=== PATIENT | female | born 1935 | race Caucasian/White ===

== ENCOUNTER 2018-08-09 05:54 | Inpatient (IN) | payer OTHER ==
[~2018-08-09] VITALS: Ht 160 cm; Wt 83.6 kg
[2018-08-09 05:57] VITALS: Ht 160 cm; Wt 83.6 kg
[2018-08-09 06:35] LABS: BASOPHIL % 0.7 % (0-2); PLATELET COUNT 214 x10^3mcL (130-400)
[2018-08-09 06:36] LABS: RED CELL DISTRIBUTION WIDTH 14.7 % (11.5-14.5)
[2018-08-09 06:53] LABS: CALCIUM 8.6 mg/dL (8.5-10.1); CARBON DIOXIDE 29.1 mmol/L (21-32); CHLORIDE SERUM 102 mmol/L (98-107); CREATININE SERUM 0.7 mg/dL (0.6-1.0); GLUCOSE SERUM 164 mg/dL (74-106); POTASSIUM SERUM 4.2 mmol/L (3.5-5.1); SODIUM SERUM 136 mmol/L (136-145)
[2018-08-09 06:57] LABS: ALBUMIN 3.5 g/dL (3.4-5.0); ALKALINE PHOSPHATASE 106 U/L (46-116); ALT/SGPT 20 U/L (14-59); AST/SGOT 18 U/L (15-37); BILIRUBIN TOTAL 0.33 mg/dL (0.20-1.00); TOTAL PROTEIN, SERUM 6.8 g/dL (6.4-8.2)
[2018-08-09] MEDS ORDERED: VITAMIN-D1000 IU (07:11)
[2018-08-09] MEDS ORDERED: BAYER ASPIRIN R81 MG (07:12)
[2018-08-09] MEDS ORDERED: NATURE'S BLEND F1 MG (07:13)
[2018-08-09] MEDS ORDERED: NAPROXEN500 MG (07:13)
[2018-08-09] MEDS ORDERED: HYDROCHLOROTH12.5 M2 (07:14)
[2018-08-09] MEDS ORDERED: METHOTREXATE2.5 M2 (07:14)
[2018-08-09] MEDS ORDERED: OMEGA-31000 MG (07:15)
[2018-08-09] MEDS ORDERED: FUROSEMIDE20 MG PO (07:15)
[2018-08-09] MEDS ORDERED: TRADJENTA5 M1 (07:15)
[2018-08-09] MEDS ORDERED: CITALOPRAM HYDR10 M1 (07:16)
[2018-08-09] MEDS ORDERED: NORCO1 TA2 (07:16)
[2018-08-09] MEDS ORDERED: PEPCID20 MG PO (07:16)
[2018-08-09] MEDS ORDERED: GLIPIZIDE5 M2 (07:17)
[2018-08-09] MEDS ORDERED: VENTOLIN H0.09 MG/A1 (07:17)
[2018-08-09 08:22] VITALS: BP 150/69
[2018-08-09 08:54] LABS: T3 TOTAL 0.95 ng/mL
[2018-08-09 09:37] LABS: FREE THYROXINE INDEX 2.7 ug/dL (1.4-4.5); T4(THYROXINE) 7.3 ug/dL (4.7-13.3)
[2018-08-09 10:27] LABS: MAGNESIUM 1.9 mg/dL (1.8-2.4)
[2018-08-09 10:32] LABS: CHOLESTEROL/HDL RATIO 2.4
[2018-08-09 16:18] LABS: UA SPECIFIC GRAVITY 1.015 (1.005-1.035); microscopic required? YES; urine erythrocyte NEGATIVE (NEGATIVE)
[2018-08-09 17:58] VITALS: BP 128/58
[2018-08-09 21:42] VITALS: BP 146/60
[2018-08-10 05:53] VITALS: BP 121/51
[2018-08-10 06:56] LABS: CALCIUM 8.2 mg/dL (8.5-10.1); CARBON DIOXIDE 29.9 mmol/L (21-32); CHLORIDE SERUM 102 mmol/L (98-107); CREATININE SERUM 0.7 mg/dL (0.6-1.0); GLUCOSE SERUM 152 mg/dL (74-106); POTASSIUM SERUM 4.2 mmol/L (3.5-5.1); SODIUM SERUM 137 mmol/L (136-145)
[2018-08-10 07:03] LABS: BASOPHIL % 0.5 % (0-2); PLATELET COUNT 184 x10^3mcL (130-400); RED CELL DISTRIBUTION WIDTH 14.3 % (11.5-14.5)
[2018-08-10 09:31] VITALS: BP 135/57
[2018-08-10 17:02] VITALS: BP 109/56
[2018-08-10 20:45] VITALS: BP 99/63
[2018-08-11 06:09] VITALS: BP 111/51
[2018-08-11 06:15] LABS: BASOPHIL % 0.3 % (0-2); PLATELET COUNT 161 x10^3mcL (130-400); RED CELL DISTRIBUTION WIDTH 14.2 % (11.5-14.5)
[2018-08-11 06:19] LABS: CALCIUM 7.5 mg/dL (8.5-10.1); CARBON DIOXIDE 29.7 mmol/L (21-32); CHLORIDE SERUM 102 mmol/L (98-107); CREATININE SERUM 0.8 mg/dL (0.6-1.0); GLUCOSE SERUM 156 mg/dL (74-106); POTASSIUM SERUM 4.2 mmol/L (3.5-5.1); SODIUM SERUM 135 mmol/L (136-145)
[2018-08-11 09:20] VITALS: BP 124/41
[2018-08-11 16:28] VITALS: BP 126/51
[2018-08-11 20:49] VITALS: BP 126/54
[2018-08-12 05:47] VITALS: BP 116/52
[2018-08-12 06:46] LABS: BASOPHIL % 0.1 % (0-2); PLATELET COUNT 162 x10^3mcL (130-400)
[2018-08-12 07:36] LABS: CALCIUM 7.6 mg/dL (8.5-10.1); CARBON DIOXIDE 27.5 mmol/L (21-32); CHLORIDE SERUM 99 mmol/L (98-107); CREATININE SERUM 0.6 mg/dL (0.6-1.0); GLUCOSE SERUM 167 mg/dL (74-106); POTASSIUM SERUM 4.2 mmol/L (3.5-5.1); SODIUM SERUM 133 mmol/L (136-145)
[2018-08-12 10:02] VITALS: BP 136/85
[2018-08-12 17:03] VITALS: BP 148/69
[2018-08-12 20:00] VITALS: BP 118/58
[2018-08-13 06:03] VITALS: BP 142/71
[2018-08-13 09:48] VITALS: BP 118/59
[2018-08-13] MEDS ORDERED: HEPARIN 5,5000 UNIT/ SC (12:14)
[2018-08-13 14:58] VITALS: BP 118/59
== END 2018-08-13 15:45 | DRG 493 ==
LOC: ED 05:54 → MU 06:57
PROVIDERS: Emergency Medicine; Internal Medicine; Neuromusculoskeletal Medicine, Sports Medicine
PROC: 0QSG04Z Reposition Right Tibia with Internal Fixation Device, Open Approach (ICD-10-PCS; 2018-08-10)
PROC: 0QUG0JZ Supplement Right Tibia with Synthetic Substitute, Open Approach (ICD-10-PCS; 2018-08-10)
PROC: 0QSJ04Z Reposition Right Fibula with Internal Fixation Device, Open Approach (ICD-10-PCS; principal; 2018-08-10 10:30)
DX: M80.861A Other osteoporosis with current pathological fracture, right lower leg, initial encounter for fracture (principal); D68.69 Other thrombophilia; I16.0 Hypertensive urgency; E11.65 Type 2 diabetes mellitus with hyperglycemia; M06.9 Rheumatoid arthritis, unspecified; J45.909 Unspecified asthma, uncomplicated; H40.9 Unspecified glaucoma; E02 Subclinical iodine-deficiency hypothyroidism; E66.9 Obesity, unspecified; Z79.82 Long term (current) use of aspirin; Z96.651 Presence of right artificial knee joint; Z68.29 Body mass index [BMI] 29.0-29.9, adult; Z79.84 Long term (current) use of oral hypoglycemic drugs
CPT/HCPCS: 76001; 82962; 83880; 84439; 97110-GP; 97530-GP; C1713; C9359; J0690; J1170; J1644; J2270; J3010; J3490; J7040; Q0092

== ENCOUNTER 2018-08-30 12:29 | Inpatient (IN) | payer OTHER ==
[~2018-08-30] VITALS: Ht 162.6 cm; Wt 83.5 kg
[~2018-08-30 12:29] MED LIST: BAYER ASPIRIN R81 MG; CITALOPRAM HYDR10 M1; FUROSEMIDE20 MG PO; GLIPIZIDE5 M2; HEPARIN 5,5000 UNIT/ SC; HYDROCHLOROTH12.5 M2; METHOTREXATE2.5 M2; NAPROXEN500 MG; NATURE'S BLEND F1 MG; NORCO1 TA2; OMEGA-31000 MG; PEPCID20 MG PO; TRADJENTA5 M1; VENTOLIN H0.09 MG/A1; VITAMIN-D1000 IU
[2018-08-30 13:53] LABS: PLATELET COUNT 371 x10^3mcL (130-400)
[2018-08-30 14:03] LABS: CALCIUM 8.7 mg/dL (8.5-10.1); CARBON DIOXIDE 27.7 mmol/L (21-32); CHLORIDE SERUM 93 mmol/L (98-107); CREATININE SERUM 0.9 mg/dL (0.6-1.0); GLUCOSE SERUM 156 mg/dL (74-106); POTASSIUM SERUM 4.2 mmol/L (3.5-5.1); SODIUM SERUM 126 mmol/L (136-145)
[2018-08-30 14:10] LABS: RED CELL DISTRIBUTION WIDTH 14.6 % (11.5-14.5)
[2018-08-30 14:13] LABS: ALKALINE PHOSPHATASE 100 U/L (46-116); ALT/SGPT 13 U/L (14-59); AST/SGOT 14 U/L (15-37); BILIRUBIN TOTAL 0.61 mg/dL (0.20-1.00); TOTAL PROTEIN, SERUM 7.5 g/dL (6.4-8.2)
[2018-08-30 14:18] LABS: ALBUMIN 3.1 g/dL (3.4-5.0)
[2018-08-30 14:19] LABS: BAND NEUTROPHIL 2 % (0-10); MONOCYTE 7 % (0-7); SEGMENTED NEUTROPHILS 79 % (37-75); rbc morphology (normal/abnorm) NORMAL (NORMAL)
[2018-08-30 14:20] LABS: PLATELET MORPHOLOGY PLATELETS NORMAL
[2018-08-30] MEDS ORDERED: NATURE S BOUNTY PO (14:32)
[2018-08-30] MEDS ORDERED: MOM PO (14:36)
[2018-08-30 14:40] LABS: FREE THYROXINE INDEX 3.6 ug/dL (1.4-4.5); T4(THYROXINE) 8.7 ug/dL (4.7-13.3)
[2018-08-30 14:49] LABS: T3 TOTAL 0.59 ng/mL
[2018-08-30 14:50] LABS: ERYTHROCYTE SED RATE 78 mm/hr (0-30)
[2018-08-30 14:59] LABS: CK-MB < 0.5 ng/mL (0-3.6); CREATINE KINASE 26 U/L (26-192); MAGNESIUM 1.8 mg/dL (1.8-2.4); PHOSPHOROUS 3.4 mg/dL (2.5-4.9)
[2018-08-30 15:01] LABS: CHOLESTEROL/HDL RATIO 1.8
[2018-08-30 15:08] LABS: FREE T4 1.37 ng/dL (0.76-1.46)
[2018-08-30 15:33] LABS: C REACTIVE PROTEIN 25.7 mg/dL (<=0.9)
[2018-08-30 16:34] VITALS: BP 122/43
[2018-08-30 16:58] LABS: UA SPECIFIC GRAVITY 1.015 (1.005-1.035); microscopic required? YES; urine erythrocyte 2+ (NEGATIVE)
[2018-08-30 17:12] LABS: AMPHETAMINE QUAL UR NONE DETECTED (See below)
[2018-08-30 21:38] VITALS: BP 114/46
[2018-08-31 05:37] VITALS: BP 118/41
[2018-08-31 07:23] LABS: BASOPHIL % 0.3 % (0-2); PLATELET COUNT 319 x10^3mcL (130-400)
[2018-08-31 07:25] LABS: RED CELL DISTRIBUTION WIDTH 14.6 % (11.5-14.5)
[2018-08-31 07:26] LABS: CALCIUM 8.3 mg/dL (8.5-10.1); CARBON DIOXIDE 26.8 mmol/L (21-32); CHLORIDE SERUM 97 mmol/L (98-107); CREATININE SERUM 0.8 mg/dL (0.6-1.0); GLUCOSE SERUM 101 mg/dL (74-106); MAGNESIUM 1.9 mg/dL (1.8-2.4); PHOSPHOROUS 3.4 mg/dL (2.5-4.9); POTASSIUM SERUM 4.5 mmol/L (3.5-5.1); SODIUM SERUM 131 mmol/L (136-145)
[2018-08-31 08:00] VITALS: BP 128/43
[2018-08-31 17:45] VITALS: BP 127/54
[2018-08-31 20:47] VITALS: BP 114/49
[2018-09-01 05:52] VITALS: BP 118/56
[2018-09-01 07:39] LABS: CALCIUM 7.8 mg/dL (8.5-10.1); CARBON DIOXIDE 26.8 mmol/L (21-32); CHLORIDE SERUM 99 mmol/L (98-107); CREATININE SERUM 0.6 mg/dL (0.6-1.0); GLUCOSE SERUM 96 mg/dL (74-106); MAGNESIUM 1.8 mg/dL (1.8-2.4); PHOSPHOROUS 2.6 mg/dL (2.5-4.9); POTASSIUM SERUM 4.5 mmol/L (3.5-5.1); SODIUM SERUM 131 mmol/L (136-145)
[2018-09-01 08:24] LABS: BASOPHIL % 0.7 % (0-2); PLATELET COUNT 351 x10^3mcL (130-400)
[2018-09-01 08:26] LABS: RED CELL DISTRIBUTION WIDTH 14.7 % (11.5-14.5)
[2018-09-01 09:00] VITALS: BP 138/51
[2018-09-01 17:09] VITALS: Ht 162.6 cm; Wt 83.5 kg
[2018-09-01 17:34] VITALS: BP 135/45
[2018-09-01 21:12] VITALS: BP 133/59
[2018-09-02 05:11] VITALS: BP 142/49
[2018-09-02 08:45] VITALS: BP 156/68
[2018-09-02 09:27] LABS: BASOPHIL % 0.7 % (0-2); PLATELET COUNT 358 x10^3mcL (130-400); RED CELL DISTRIBUTION WIDTH 14.3 % (11.5-14.5)
[2018-09-02 10:01] LABS: CALCIUM 8.6 mg/dL (8.5-10.1); CARBON DIOXIDE 26.9 mmol/L (21-32); CHLORIDE SERUM 101 mmol/L (98-107); CREATININE SERUM 0.6 mg/dL (0.6-1.0); GLUCOSE SERUM 123 mg/dL (74-106); POTASSIUM SERUM 4.2 mmol/L (3.5-5.1); SODIUM SERUM 134 mmol/L (136-145)
[2018-09-02 17:20] VITALS: BP 115/51
[2018-09-02 20:33] VITALS: BP 135/58
[2018-09-03 05:27] VITALS: BP 129/50
[2018-09-03 06:13] LABS: BASOPHIL % 0.4 % (0-2); PLATELET COUNT 327 x10^3mcL (130-400); RED CELL DISTRIBUTION WIDTH 14.2 % (11.5-14.5)
[2018-09-03 06:45] LABS: CALCIUM 8.2 mg/dL (8.5-10.1); CARBON DIOXIDE 27.9 mmol/L (21-32); CHLORIDE SERUM 99 mmol/L (98-107); CREATININE SERUM 0.6 mg/dL (0.6-1.0); GLUCOSE SERUM 141 mg/dL (74-106); POTASSIUM SERUM 4.3 mmol/L (3.5-5.1); SODIUM SERUM 132 mmol/L (136-145)
[2018-09-03 10:00] VITALS: BP 140/55
[2018-09-03 17:07] VITALS: BP 132/52
[2018-09-03 21:26] VITALS: BP 135/61
[2018-09-04 04:34] VITALS: BP 151/65
[2018-09-04 06:21] LABS: BASOPHIL % 0.7 % (0-2); PLATELET COUNT 331 x10^3mcL (130-400); RED CELL DISTRIBUTION WIDTH 14.3 % (11.5-14.5)
[2018-09-04 06:24] LABS: CALCIUM 8.7 mg/dL (8.5-10.1); CARBON DIOXIDE 29.4 mmol/L (21-32); CHLORIDE SERUM 98 mmol/L (98-107); CREATININE SERUM 0.6 mg/dL (0.6-1.0); GLUCOSE SERUM 112 mg/dL (74-106); POTASSIUM SERUM 4.3 mmol/L (3.5-5.1); SODIUM SERUM 133 mmol/L (136-145)
[2018-09-04 10:07] VITALS: BP 131/52
[2018-09-04 18:28] VITALS: BP 137/56
[2018-09-04 21:19] VITALS: BP 123/48
[2018-09-05 05:42] VITALS: BP 150/51
[2018-09-05 06:46] LABS: BASOPHIL % 0.7 % (0-2); PLATELET COUNT 345 x10^3mcL (130-400)
[2018-09-05 07:16] LABS: CALCIUM 9.2 mg/dL (8.5-10.1); CHLORIDE SERUM 99 mmol/L (98-107); CREATININE SERUM 0.7 mg/dL (0.6-1.0); GLUCOSE SERUM 120 mg/dL (74-106); POTASSIUM SERUM 4.4 mmol/L (3.5-5.1); SODIUM SERUM 133 mmol/L (136-145)
[2018-09-05 09:47] VITALS: BP 140/63
[2018-09-05] MEDS ORDERED: MERREM IV1 GM INJ (11:33)
[2018-09-05 14:10] VITALS: BP 140/63
[2018-09-05 17:27] VITALS: BP 133/70
== END 2018-09-05 20:21 | DRG 853 ==
LOC: ED 12:29 → MU 13:54
PROVIDERS: Internal Medicine; Neuromusculoskeletal Medicine, Sports Medicine; Specialist; ADMIT Family Medicine
PROC: 0YBH0ZZ Excision of Right Lower Leg, Open Approach (ICD-10-PCS; principal; 2018-08-31 10:00)
DX: A41.9 Sepsis, unspecified organism (principal); N17.0 Acute kidney failure with tubular necrosis; L03.115 Cellulitis of right lower limb; T81.32XA Disruption of internal operation (surgical) wound, not elsewhere classified, initial encounter; E87.1 Hypo-osmolality and hyponatremia; E44.1 Mild protein-calorie malnutrition; N39.0 Urinary tract infection, site not specified; E11.21 Type 2 diabetes mellitus with diabetic nephropathy; B96.5 Pseudomonas (aeruginosa) (mallei) (pseudomallei) as the cause of diseases classified elsewhere; M06.9 Rheumatoid arthritis, unspecified; Z79.82 Long term (current) use of aspirin; Z68.32 Body mass index [BMI] 32.0-32.9, adult; Z79.84 Long term (current) use of oral hypoglycemic drugs
CPT/HCPCS: 36600; 82962; 83880; 84439; 97110-GP; 97530-GP; J0690; J0696; J1170; J1644; J1885; J2185; J2250; J2405; J3010; J3370; J7030; Q0092